=== PATIENT | male | born 1990 | race Caucasian/White ===

== ENCOUNTER 2017-11-30 18:03 | Observation (INO) ==
--- NOTE | 2017-11-30 18:34 | Emergency Department Note ---
Disposition Clinical Impression: Cholecystitis Disposition: Admitted As Inpatient Condition: Undetermined Referrals: NONE,PCP [Primary Care Provider] - Trip Luong DO [Family Provider] - Forms: ED Satisfaction Letter, Work/School Release Time of Disposition: 19:57 Abdominal Pain HPI - General Chief Complaint: ED Abdominal Pain Stated Complaint: ABD Pain/Back Pain Time Seen by Provider: 11/30/17 18:14 Source: patient Mode of arrival: ambulatory Limitations: no limitations Nursing Notes Reviewed: Yes Vital Signs Reviewed: Yes - History of Present Illness HPI Narrative: 27-year-old male no previous medical history arrives to the emergency department with complaint of right upper quadrant pain and radiation into his back. The patient states that he has had intermittent episodes like this over the course the past few weeks. The patient states that at 4 AM this morning she started experiencing worsening symptoms. Patient denies any other complaints other than associated nausea. The patient has no temporal or associated exacerbating factors. The patient is uncomfortable on examination the room. He denies any others previous symptoms similar to this except for the past couple weeks he is having some intermittent episodes. Patient is uncomfortable in the room and unable to sit still during examination. Patient is Oconnor's sign positive. Pain Scale: 8 - Related Data Home Medications Medication Instructions Recorded Confirmed No Known Home Drugs 11/30/17 11/30/17 Allergies Allergy/AdvReac Type Severity Reaction Status Date / Time No Known Allergies Allergy Verified 11/30/17 18:10 All systems ED: reviewed and negative except as stated. Constitutional: Denies: fever, chills, weakness ENT ED: Denies: dysphagia Cardiovascular: Denies: chest pain Respiratory: Denies: dyspnea Gastrointestinal: Reports: abdominal pain, nausea. Denies: vomiting, diarrhea, constipation, hematemesis, melena, hematochezia Genitourinary: Denies: urgency, dysuria Musculoskeletal: Reports: back pain. Denies: neck pain, arthralgia, myalgia Integumentary: Denies: rash Abdominal Pain PMH - Past Medical History Medical history: Reports: no medical history Male Surgical History: Reports: non-contributory - Social History Smoking status: Current every day smoker Alcohol use: Reports: none Drug use: Reports: none Physical Exam - General Limitations: no limitations General appearance: alert, in no apparent distress - Head Head exam: atraumatic, normocephalic, normal inspection - Eye Eye exam: Present: normal appearance, PERRL, EOMI - ENT ENT exam: normal exam, normal oropharynx, mucous membranes moist - Neck Neck exam: Present: normal inspection, full ROM, trachea midline - Chest Chest inspection: Present: normal inspection, symmetric chest wall rise - Respiratory Respiratory exam: Present: normal lung sounds bilaterally - Cardiovascular Cardiovascular exam: Present: regular rate, normal rhythm, normal heart sounds - Abdominal Exam Abdominal exam: Present: soft, tenderness, Oconnor's sign. Absent: distention, guarding, rebound, rigidity, Rovsing's sign, tenderness at McBurney's Point, scar - Extremities Exam Extremities exam: Present: normal inspection, full ROM. Absent: tenderness, pedal edema - Neurological Exam Neurological exam: Present: alert, oriented X3 - Skin Skin exam: Present: warm, dry, intact, normal color Course Vital Signs Temperature 98.4 F 11/30/17 18:10 Pulse Rate 91 11/30/17 18:10 Respiratory Rate 20 11/30/17 18:10 Blood Pressure 158/90 11/30/17 18:10 O2 Sat by Pulse Oximetry 96 11/30/17 18:10 Temperature 98.4 F 11/30/17 18:24 Pulse Rate 89 11/30/17 19:45 Respiratory Rate 20 11/30/17 19:45 Blood Pressure 174/85 11/30/17 19:45 O2 Sat by Pulse Oximetry 100 11/30/17 19:45 Oxygen Delivery Oxygen Delivery Room Air Abdominal Pain - MDM Narrative Medical decision making narrative: Agents lab work concerning for elevated transaminases. The patient's gallbladder ultrasound reveals concerning findings for cholecystitis. The patient does have a common bile duct dilation at 7 mm. The patient has a gallbladder dilation of 14 cm. Patient also has gallbladder wall thickening. The patient is sonographic Oconnor sign. The patient was started on Zosyn with concern for cholecystitis. In general surgery, Dr. Bai was consulted. He requested admission to his service and he will likely take the patient to the OR. Patient is resting comfortably at the time. No further questions or concerns noted by patient. - Lab Data Lab results reviewed: Yes I reviewed the patient's lab results. Result diagrams: 11/30/17 18:34 11/30/17 18:34 Lab Results 08/16/18 08/16/18 Range/Units 18:34 18:34 WBC 16.3 H (4.3-11.1) K/mcL RBC 5.51 H (4.19-5.50) M/mcL Hgb 16.6 (12.9-16.9) g/dL Hct 49.1 (37.5-50.1) % MCV 89.1 (83.0-100.0) fL MCH 30.1 (28.0-33.3) pg MCHC 33.8 (31.6-35.5) g/dL RDW 13.2 (11.5-14.5) % Plt Count 243 (140-400) K/mcL MPV 10.5 (9.4-12.4) fL Immature Gran % 0.5 (0-4) % Seg Neutrophils % 76.4 % Lymphocytes % 14.3 % Monocytes % 7.0 % Eosinophils % 1.5 % Basophils % 0.3 % Neutrophils # 12.5 H (1.6-8.9) K/mcL Lymphocytes # 2.3 (0.6-4.6) K/mcL Monocytes # 1.2 (0.0-1.3) K/mcL Eosinophils # 0.2 (0.0-0.6) K/mcL Basophils # 0.1 (0.0-0.2) K/mcL Sodium 139 (136-145) mEq/L Potassium 3.9 (3.5-5.1) mEq/L Chloride 105 (98-107) mEq/L Carbon Dioxide 25 (23-29) mEq/L BUN 14 (6-20) mg/dL Creatinine 0.71 (0.70-1.30) mg/dL Est GFR ( Amer) > 60 (> 60) Est GFR (Non-Af Amer) > 60 (> 60) BUN/Creatinine Ratio 20 (6-26) Glucose 108 H (70-105) mg/dL Calculated Osmolality 289 (280-300) Calcium 9.7 (8.6-10.3) mg/dL Total Bilirubin 0.7 (0.3-1.0) mg/dL Direct Bilirubin 0.2 (0.0-0.2) mg/dL Indirect Bilirubin 0.5 (0.0-1.2) mg/dL AST 52 H (13-39) Units/L ALT 89 H (7-52) Units/L Alkaline Phosphatase 104 (34-104) Units/L Serum Total Protein 7.8 (6.4-8.9) g/dL Albumin 4.6 (3.5-5.7) g/dL Globulin 3.2 (2.4-3.5) g/dL Albumin/Globulin Ratio 1.4 (1.1-2.2) Lipase 5 L (11-82) Units/L - Radiology Data Radiology results reviewed: Yes I reviewed the patient's radiology results. Abdomen/Pelvis CT 11/30/17 18:33 IMPRESSION: Gallbladder distended with intraluminal radiodense material suggesting sludge and/or stones. There is suspected gallbladder wall thickening correlation for acute inflammation is recommended. Mild fatty infiltration of the liver. Left nephrolithiasis. D/ / Ana Meehan Cha, MD / Ana Meehan Cha, MD Interpreting Provider: Ana Meehan Cha, MD Gallbladder Ultrasound 11/30/17 18:58 IMPRESSION: Distended sludge filled gallbladder with gallbladder wall thickening and positive Oconnor sign. Findings may be consistent with acute cholecystitis in the appropriate clinical setting. A nuclear medicine a patent biliary scan may be helpful for further evaluation if there is clinical concern for acute cholecystitis. Fatty liver. D/ / Long Grove MD / Long [place] MD Interpreting Provider: Long Grove MD
--- NOTE | 2017-11-30 18:46 | Emergency Department Note ---
Disposition Clinical Impression: Cholecystitis Disposition: Admitted As Inpatient Condition: Undetermined Abdominal Pain HPI - General Chief Complaint: ED Abdominal Pain Stated Complaint: ABD Pain/Back Pain Time Seen by Provider: 11/30/17 18:14 - History of Present Illness HPI Narrative: 27yo male presents to [address] [facility] ED complaining of Right upper and lower abdominal pain, and bilateral back pain and burning on urination that started today at 4am , woke him up, and has been constant since then. He states he has had 2 previous episodes, 4 and 6 days ago that went away on their own. Patient has had vomiting with each episode. Patient states that his burning on urination is only during his back/abdominal pain. He states that he has had vomiting today. Patient has used tylenol, pepto, and tums for pain and nausea. Patient states that a year ago he had gotten sepsis due to dental infection that started to shut down his kidneys, but that they recovered since then. Patient denies surgical hx, or hx kidney stones. Patient denies other medhx or medications. Patient denies numbness in perineal/inner thigh area, problems walking,leg weakness, muscle aches/pain, increased frequency urination, fever, chills, constipation, diarrhea, sick contacts, IVDU. Pain Scale: 8 - Related Data Home Medications Medication Instructions Recorded Confirmed No Known Home Drugs 11/30/17 11/30/17 Allergies Allergy/AdvReac Type Severity Reaction Status Date / Time No Known Allergies Allergy Verified 11/30/17 18:10 Constitutional: Denies: fever, chills Cardiovascular: Denies: chest pain, orthopnea, edema Respiratory: Denies: dyspnea Gastrointestinal: Reports: abdominal pain, nausea, vomiting. Denies: diarrhea, constipation Genitourinary: Reports: dysuria. Denies: frequency Musculoskeletal: Reports: back pain. Denies: myalgia Neurological: Denies: numbness, paresthesias, abnormal gait Abdominal Pain PMH - Past Medical History Medical history: Reports: no medical history Male Surgical History: Reports: no surgical history - Social History Smoking status: Current every day smoker Drug use: Reports: none Physical Exam - General General appearance: alert, in no apparent distress - Respiratory Respiratory exam: Present: normal lung sounds bilaterally - Cardiovascular Cardiovascular exam: Present: regular rate, normal rhythm, normal heart sounds - Abdominal Exam Abdominal exam: Present: tenderness. Absent: guarding Abdominal tenderness: Present: RUQ, RLQ, epigastrium - Extremities Exam Extremities exam: Absent: tenderness, pedal edema - Expanded Lower Extremity Exam Lower leg exam: Absent: swelling - Back Exam Back exam: Present: tenderness, CVA tenderness (R), CVA tenderness (L) - Neurological Exam Neurological exam: Present: alert, oriented X3 - Psychiatric Psychiatric exam: Present: normal affect, normal mood Course Vital Signs Temperature 98.4 F 11/30/17 18:10 Pulse Rate 91 11/30/17 18:10 Respiratory Rate 20 11/30/17 18:10 Blood Pressure 158/90 11/30/17 18:10 O2 Sat by Pulse Oximetry 96 11/30/17 18:10 Temperature 98.4 F 11/30/17 18:24 Pulse Rate 82 11/30/17 20:22 Respiratory Rate 20 11/30/17 20:22 Blood Pressure 161/81 11/30/17 20:22 O2 Sat by Pulse Oximetry 100 11/30/17 20:22 Oxygen Delivery Oxygen Delivery Room Air Abdominal Pain - Lab Data Result diagrams: 11/30/17 18:34 11/30/17 18:34 Lab Results 11/30/17 11/30/17 11/30/17 Range/Units 18:34 18:34 19:53 WBC 16.3 H (4.3-11.1) K/mcL RBC 5.51 H (4.19-5.50) M/mcL Hgb 16.6 (12.9-16.9) g/dL Hct 49.1 (37.5-50.1) % MCV 89.1 (83.0-100.0) fL MCH 30.1 (28.0-33.3) pg MCHC 33.8 (31.6-35.5) g/dL RDW 13.2 (11.5-14.5) % Plt Count 243 (140-400) K/mcL MPV 10.5 (9.4-12.4) fL Immature Gran % 0.5 (0-4) % Seg Neutrophils % 76.4 % Lymphocytes % 14.3 % Monocytes % 7.0 % Eosinophils % 1.5 % Basophils % 0.3 % Neutrophils # 12.5 H (1.6-8.9) K/mcL Lymphocytes # 2.3 (0.6-4.6) K/mcL Monocytes # 1.2 (0.0-1.3) K/mcL Eosinophils # 0.2 (0.0-0.6) K/mcL Basophils # 0.1 (0.0-0.2) K/mcL Sodium 139 (136-145) mEq/L Potassium 3.9 (3.5-5.1) mEq/L Chloride 105 (98-107) mEq/L Carbon Dioxide 25 (23-29) mEq/L BUN 14 (6-20) mg/dL Creatinine 0.71 (0.70-1.30) mg/dL Est GFR ( Amer) > 60 (> 60) Est GFR (Non-Af Amer) > 60 (> 60) BUN/Creatinine Ratio 20 (6-26) Glucose 108 H (70-105) mg/dL Calculated Osmolality 289 (280-300) Calcium 9.7 (8.6-10.3) mg/dL Total Bilirubin 0.7 (0.3-1.0) mg/dL Direct Bilirubin 0.2 (0.0-0.2) mg/dL Indirect Bilirubin 0.5 (0.0-1.2) mg/dL AST 52 H (13-39) Units/L ALT 89 H (7-52) Units/L Alkaline Phosphatase 104 (34-104) Units/L Serum Total Protein 7.8 (6.4-8.9) g/dL Albumin 4.6 (3.5-5.7) g/dL Globulin 3.2 (2.4-3.5) g/dL Albumin/Globulin Ratio 1.4 (1.1-2.2) Lipase 5 L (11-82) Units/L Urine Color Yellow (Yellow) Urine Clarity Turbid A (Clear) Urine pH 6.0 (5.0-8.0) pH Units Ur Specific [place] > 1.030 H (1.010-1.025) Urine Protein Trace (Neg-Trace) mg/dL Urine Glucose (UA) Normal (Normal) mg/dL Urine Ketones 40 H (Negative) mg/dL Urine Blood Negative (Negative) Urine Nitrite Negative (Negative) Urine Bilirubin Small H (Negative) Urine Urobilinogen Normal (Normal) mg/dL Ur Leukocyte Esterase Negative (Negative) Urine Microscopic RBC 0-3 (0-3) per hpf Urine Microscopic WBC 3-5 H (0-3) per hpf Ur Squamous Epith Cells Many H (None-Few) per lpf Amorphous Sediment Moderate H (Few) Urine Bacteria None Seen (None-Few) per hpf Hyaline Casts None Seen (None-Few) per lpf Ur Culture Indicated? NO (NO)
[2017-11-30 18:56] LABS: Basophils # 0.1 K/mcL (0.0-0.2); Basophils % 0.3 %; Eosinophils # 0.2 K/mcL (0.0-0.6); Eosinophils % 1.5 %; Hematocrit 49.1 % (37.5-50.1); Hemoglobin 16.6 g/dL (12.9-16.9); Immature Granulocytes % 0.5 % (0-4); Lymphocytes # 2.3 K/mcL (0.6-4.6); Lymphocytes % 14.3 %; Mean Corpuscular HGB Conc 33.8 g/dL (31.6-35.5); Mean Corpuscular Hemoglobin 30.1 pg (28.0-33.3); Mean Corpuscular Volume 89.1 fL (83.0-100.0); Mean Platelet Volume 10.5 fL (9.4-12.4); Monocytes # 1.2 K/mcL (0.0-1.3); Neutrophils # 12.5 K/mcL (1.6-8.9); Platelet Count 243 K/mcL (140-400); Red Blood Count 5.51 M/mcL (4.19-5.50); Red Cell Distribution Width 13.2 % (11.5-14.5); Segmented Neutrophils % 76.4 %
[2017-11-30 19:07] LABS: Alanine Aminotransferase 89 Units/L (7-52); Albumin 4.6 g/dL (3.5-5.7); Albumin/Globulin Ratio 1.4 (1.1-2.2); Alkaline Phosphatase 104 Units/L (34-104); Aspartate Amino Transferase 52 Units/L (13-39); BUN/Creatinine Ratio 20 (6-26); Bilirubin,Direct 0.2 mg/dL (0.0-0.2); Bilirubin,Indirect 0.5 mg/dL (0.0-1.2); Bilirubin,Total 0.7 mg/dL (0.3-1.0); Blood Urea Nitrogen 14 mg/dL (6-20); Calcium 9.7 mg/dL (8.6-10.3); Carbon Dioxide 25 mEq/L (23-29); Chloride 105 mEq/L (98-107); Globulin 3.2 g/dL (2.4-3.5); Glucose 108 mg/dL (70-105); Lipase 5 Units/L (11-82); Osmolality,Calculated 289 (280-300); Potassium 3.9 mEq/L (3.5-5.1); Sodium 139 mEq/L (136-145); Total Protein 7.8 g/dL (6.4-8.9); eGFR For Non-African Americans > 60 (> 60)
[2017-11-30] MEDS ORDERED: *HR* FentaNYL (PF) 100 MCG/2 ML VIAL IVP ONE ×2 (19:31→20:11)
[2017-11-30] MEDS ORDERED: 0.9 % Sodium Chloride 1,000 ML IVC ONE (19:31)
[2017-11-30] MEDS ORDERED: Piperacillin/Tazobactam 3.375 GM in 0.9 % Sodium Chloride Mini Bag 100 ML IVPB ONE (19:41)
--- NOTE | 2017-11-30 19:42 | Emergency Department Note ---
Disposition Clinical Impression: Cholecystitis Disposition: Admitted As Inpatient Condition: Undetermined General Adult HPI - General Chief complaint: ED Abdominal Pain Stated complaint: ABD Pain/Back Pain Time Seen by Provider: 11/30/17 18:14 Source: patient Mode of arrival: ambulatory Limitations: no limitations - History of Present Illness Pain Scale: 8 - Related Data Home Medications Medication Instructions Recorded Confirmed No Known Home Drugs 11/30/17 11/30/17 Allergies Allergy/AdvReac Type Severity Reaction Status Date / Time No Known Allergies Allergy Verified 11/30/17 18:10 Constitutional: Denies: fever, chills, weakness ENT ED: Denies: dysphagia Cardiovascular: Denies: chest pain Respiratory: Denies: dyspnea Gastrointestinal: Reports: abdominal pain, nausea. Denies: vomiting, diarrhea, constipation, hematemesis, melena, hematochezia Genitourinary: Denies: urgency, dysuria Musculoskeletal: Reports: back pain. Denies: neck pain, arthralgia, myalgia Integumentary: Denies: rash Neurological: Denies: numbness, paresthesias, abnormal gait Past Medical History - Past Medical History Medical history: Reports: no medical history - Social History Smoking Status: Current every day smoker Alcohol use: Reports: none Drug use: Reports: none Physical Exam - General Limitations: no limitations General appearance: alert, in no apparent distress Course Vital Signs Temperature 98.4 F 11/30/17 18:10 Pulse Rate 91 11/30/17 18:10 Respiratory Rate 20 11/30/17 18:10 Blood Pressure 158/90 11/30/17 18:10 O2 Sat by Pulse Oximetry 96 11/30/17 18:10 Temperature 98.4 F 11/30/17 18:24 Pulse Rate 82 11/30/17 20:22 Respiratory Rate 20 11/30/17 20:22 Blood Pressure 161/81 11/30/17 20:22 O2 Sat by Pulse Oximetry 100 11/30/17 20:22 Oxygen Delivery Oxygen Delivery Room Air Medical Decision Making - Lab Data Result diagrams: 11/30/17 18:34 11/30/17 18:34 Lab Results 11/30/17 11/30/17 11/30/17 Range/Units 18:34 18:34 19:53 WBC 16.3 H (4.3-11.1) K/mcL RBC 5.51 H (4.19-5.50) M/mcL Hgb 16.6 (12.9-16.9) g/dL Hct 49.1 (37.5-50.1) % MCV 89.1 (83.0-100.0) fL MCH 30.1 (28.0-33.3) pg MCHC 33.8 (31.6-35.5) g/dL RDW 13.2 (11.5-14.5) % Plt Count 243 (140-400) K/mcL MPV 10.5 (9.4-12.4) fL Immature Gran % 0.5 (0-4) % Seg Neutrophils % 76.4 % Lymphocytes % 14.3 % Monocytes % 7.0 % Eosinophils % 1.5 % Basophils % 0.3 % Neutrophils # 12.5 H (1.6-8.9) K/mcL Lymphocytes # 2.3 (0.6-4.6) K/mcL Monocytes # 1.2 (0.0-1.3) K/mcL Eosinophils # 0.2 (0.0-0.6) K/mcL Basophils # 0.1 (0.0-0.2) K/mcL Sodium 139 (136-145) mEq/L Potassium 3.9 (3.5-5.1) mEq/L Chloride 105 (98-107) mEq/L Carbon Dioxide 25 (23-29) mEq/L BUN 14 (6-20) mg/dL Creatinine 0.71 (0.70-1.30) mg/dL Est GFR ( Amer) > 60 (> 60) Est GFR (Non-Af Amer) > 60 (> 60) BUN/Creatinine Ratio 20 (6-26) Glucose 108 H (70-105) mg/dL Calculated Osmolality 289 (280-300) Calcium 9.7 (8.6-10.3) mg/dL Total Bilirubin 0.7 (0.3-1.0) mg/dL Direct Bilirubin 0.2 (0.0-0.2) mg/dL Indirect Bilirubin 0.5 (0.0-1.2) mg/dL AST 52 H (13-39) Units/L ALT 89 H (7-52) Units/L Alkaline Phosphatase 104 (34-104) Units/L Serum Total Protein 7.8 (6.4-8.9) g/dL Albumin 4.6 (3.5-5.7) g/dL Globulin 3.2 (2.4-3.5) g/dL Albumin/Globulin Ratio 1.4 (1.1-2.2) Lipase 5 L (11-82) Units/L Urine Color Yellow (Yellow) Urine Clarity Turbid A (Clear) Urine pH 6.0 (5.0-8.0) pH Units Ur Specific [place] > 1.030 H (1.010-1.025) Urine Protein Trace (Neg-Trace) mg/dL Urine Glucose (UA) Normal (Normal) mg/dL Urine Ketones 40 H (Negative) mg/dL Urine Blood Negative (Negative) Urine Nitrite Negative (Negative) Urine Bilirubin Small H (Negative) Urine Urobilinogen Normal (Normal) mg/dL Ur Leukocyte Esterase Negative (Negative) Urine Microscopic RBC 0-3 (0-3) per hpf Urine Microscopic WBC 3-5 H (0-3) per hpf Ur Squamous Epith Cells Many H (None-Few) per lpf Amorphous Sediment Moderate H (Few) Urine Bacteria None Seen (None-Few) per hpf Hyaline Casts None Seen (None-Few) per lpf Ur Culture Indicated? NO (NO) Attestation Statement - Attestation Attestation: I examined this patient and my medical decision-making was reviewed with the Resident Physician. I agree with the documented findings, disposition and treatment plan as described except to the extent set forth below. Patient presents to the emergency department complaining of right upper quadrant abdominal pain. He has been having pain for a few weeks that worsened significantly Abelardo night. Concern for gallbladder problems as multiple family members have had that. On examination he has right upper quadrant tenderness. Plan. CT and ultrasound are concerning for cholecystitis. He also has a slightly dilated common bile duct. We will discuss with surgery. Antibodies ordered. Patient admitted to surgery. Abdomen/Pelvis CT 11/30/17 18:33 IMPRESSION: Gallbladder distended with intraluminal radiodense material suggesting sludge and/or stones. There is suspected gallbladder wall thickening correlation for acute inflammation is recommended. Mild fatty infiltration of the liver. Left nephrolithiasis. D/ / Ana Meehan Cha, MD / Ana Meehan Cha, MD Interpreting Provider: Ana Meehan Cha, MD Gallbladder Ultrasound 11/30/17 18:58 IMPRESSION: Distended sludge filled gallbladder with gallbladder wall thickening and positive Oconnor sign. Findings may be consistent with acute cholecystitis in the appropriate clinical setting. A nuclear medicine a patent biliary scan may be helpful for further evaluation if there is clinical concern for acute cholecystitis. Fatty liver. D/ / [place] MD / [place] MD Interpreting Provider: [place] MD
[2017-11-30 20:05] LABS: Bilirubin,Urine Small (Negative); Blood,Urine Negative (Negative); Clarity,Urine Turbid (Clear); Color,Urine Yellow (Yellow); Glucose,Urine (UA) Normal (Normal); Ketones,Urine 40 mg/dL (Negative); Leukocyte Esterase,Urine Negative (Negative); Nitrite,Urine Negative (Negative); Protein,Urine Trace mg/dL (Neg-Trace); Specific Gravity,Urine > 1.030 (1.010-1.025); Urobilinogen,Urine Normal (Normal)
[2017-11-30 20:09] LABS: Bacteria,Urine None Seen per hpf (None-Few); Hyaline Casts,Urine None Seen per lpf (None-Few); RBC,Urine 0-3 per hpf (0-3); Squamous Epithelial Cell,Urine Many per lpf (None-Few)
[2017-11-30 20:19] LABS: Amorphous Sediment,Urine Moderate (Few)
[2017-11-30] MEDS ORDERED: CefOXitin 1,000 MG VIAL ONE (20:19)
--- NOTE | 2017-11-30 20:20 | General Surg History&Physical ---
Date of Encounter: 11/30/17 Time of Encounter: 20:00 Assessment and Plan (1) Acute cholecystitis Current Visit: Yes Status: Acute The assessment and plan as outlined above was discussed with the patient and/or family members who expressed understanding and agreement. All questions were answered. Acute cholecystitis associated with cholelithiasis and leukocytosis. He has recalcitrant pain. We will plan to proceed with urgent laparoscopic cholecystectomy, cholangiogram History of Present Illness Chief complaint: Right upper quadrant pain HPI: Mr. Grove is a 27 year old male Who presented to the emergency room tonight with nausea vomiting and right upper quadrant pain. He has been symptomatic with right upper quadrant pain for the last 3 months. He has noted increased fatty food intolerance as well as persistent right upper quadrant pain this has been intermittently associated with nausea but just recently associated with vomiting. He is been in continuous pain since last evening. He denies shakes chills or fever. He denies episodes of jaundice. He sought evaluation in the emergency room. CAT scan of the abdomen demonstrated gallbladder wall distention and gallbladder wall thickening. Follow-up ultrasound demonstrated gallbladder sludge with gallbladder wall thickening as well as distention and likely. Cholecystic fluid. Bile duct measures 7 mm. He complains bitterly of pain radiating through to his back recalcitrant to narcotic pain medicine. He now presents for urgent cholecystectomy for acute cholecystitis and recalcitrant biliary colic Past Med Surg Social Fam HX - Past Medical History Medical history: no medical history - Social History Smoking Status: Current every day smoker Alcohol use: none Drug use: none Medications and Allergies No Known Home Drugs 11/30/17 [History] 3 Allergy/AdvReac Type Severity Reaction Status Date / Time No Known Allergies Allergy Verified 11/30/17 18:10 Review of Systems All systems PM: The remainder of the systems were reviewed and are negative General Surgery Exam Initial Vital Signs Temp Pulse Resp BP Pulse Ox 98.4 F 91 20 158/90 96 11/30/17 18:10 11/30/17 18:10 11/30/17 18:10 11/30/17 18:10 11/30/17 18:10 - General physical appearance well developed, well nourished, no distress - Neck no masses, no bruits, trachea midline, no lymphadectomy, no venous distension - Respiratory normal expansion, normal respiratory effort, clear to percussion, clear to auscultation - Cardiovascular Cardiovascular exam: Present: RRR, no murmurs/rubs/gallops - Abdomen Abdomen general surgery: Present: tender Abdominal Tenderness: Present: RUQ (Positive Oconnor sign) - Neurologic Present: CN 2-12 grossly intact, normal coordination, normal sensation - Psychiatric Psychiatric general surgery: Present: appropriate, oriented to person, oriented to place, oriented to time, speech is normal, memory intact Results - Labs 11/30/17 18:34 11/30/17 18:34 Abnormal lab results WBC 16.3 K/mcL (4.3-11.1) H 11/30/17 18:34 RBC 5.51 M/mcL (4.19-5.50) H 11/30/17 18:34 Neutrophils # 12.5 K/mcL (1.6-8.9) H 11/30/17 18:34 Glucose 108 mg/dL (70-105) H 11/30/17 18:34 AST 52 Units/L (13-39) H 11/30/17 18:34 ALT 89 Units/L (7-52) H 11/30/17 18:34 Lipase 5 Units/L (11-82) L 11/30/17 18:34 Urine Clarity Turbid (Clear) A 11/30/17 19:53 Ur Specific [place] > 1.030 (1.010-1.025) H 11/30/17 19:53 Urine Ketones 40 mg/dL (Negative) H 11/30/17 19:53 Urine Bilirubin Small (Negative) H 11/30/17 19:53 All other labs normal. - Imaging CT scan - abdomen: image reviewed (I personally reviewed the CAT scan images. The patient is gallbladder wall thickening and what appears to be an obstructed gallbladder.) US - abdomen: image reviewed (Ultrasound images are personally reviewed. He has a thickened gallbladder wall and tumefactive layering in the gallbladder consistent with sludge or stones)
[2017-11-30] MEDS ORDERED: Albuterol 2.5 MG/3 ML NEBULIZER ONE (20:37)
--- NOTE | 2017-11-30 20:41 | Anesthesia Evaluation PreOp ---
Date of Encounter: 11/30/17 Time of Encounter: 20:40 - Past History Planned Operation: Lap. Karin Cardiac History: Denies any Significant Hx Pulmonary History: Smoker QUALITY OFFICER History: Denies Any Significant HX Other Medical History: Denies Any Significant HX Anesthesia History: Past Anesthesia (none) Alcohol Use: none Drug use: none Medications and Allergies No Known Home Drugs 11/30/17 [History] 3 Allergy/AdvReac Type Severity Reaction Status Date / Time No Known Allergies Allergy Verified 11/30/17 18:10 - Meds/Allergy Pre-op Review Medications Reviewed: Yes Allergies Reviewed: Yes Beta Blockers on Current Med List: No Anesthesia Results - Labs 11/30/17 18:34 11/30/17 18:34 Anesthesia Exam O2 Sat Height 1.8 m Height 1.8 m Weight 105.506 kg Weight 105.506 kg O2 Sat by Pulse Oximetry 100 O2 Sat by Pulse Oximetry 99 O2 Sat by Pulse Oximetry 100 O2 Sat by Pulse Oximetry 96 O2 Sat by Pulse Oximetry 96 Vital Signs Temp Pulse Resp BP Pulse Ox 98.4 F 91 20 158/90 96 11/30/17 18:10 11/30/17 18:10 11/30/17 18:10 11/30/17 18:10 11/30/17 18:10 NPO (# of Hours): > 8 hrs Pain Scale: 0 Pain Scale Used: Numeric (1 - 10) - HEENT Pupil (Motor): Pupils equal, EOMI Mallampati: I Teeth: Normal Oral Opening: Greater than 3 - QUALITY OFFICER LOC: Oriented QUALITY OFFICER Motor: Normal RUE, Normal LUE, Normal RLE, Normal LLE, Normal Face QUALITY OFFICER Sensory: Normal: RUE, LUE, RLE, LLE, Face - Cardiac Rhythm: Regular Murmur: None JVD: No Carotid Bruit: No - Pulmonary Breath Sounds: bilateral Clear Respiratory Effort: Symmetrical Anesthesia Assess/Plan ASA Score: 2 Modified [place] Scale for Level of Consciousness: Cooperative, oriented, and tranquil Anesthetic Plan: General Autologous Blood: Yes Monitoring Plan: Standard Monitors Recovery Plan: PACU
[2017-11-30] MEDS ORDERED: *HR* Midazolam HCl 2 MG/2 ML VIAL ONE (20:45)
[2017-11-30] MEDS ORDERED: *HR* Propofol 200 MG/20 ML VIAL IVP ONE (20:46)
[2017-11-30] MEDS ORDERED: Isovue-300 50 ML VIAL IVP ONE (20:49)
[2017-11-30] MEDS ORDERED: *HR* FentaNYL (PF) 100 MCG/2 ML VIAL ONE (21:45)
[2017-11-30] MEDS ORDERED: *HR* Labetalol 20 MG/4 ML SYRINGE IVP PRN (22:00)
[2017-11-30] MEDS ORDERED: *HR* HYDROmorphone (PF) 1 MG/ML SYRINGE IVP PRN (22:00)
[2017-11-30] MEDS ORDERED: Albuterol 2.5 MG/3 ML NEBULIZER IH ONE (22:00)
[2017-11-30] MEDS ORDERED: *HR* Midazolam HCl 2 MG/2 ML VIAL IVP PRN (22:00)
[2017-11-30] MEDS ORDERED: Ondansetron 4 MG/2 ML VIAL IVP ONE (22:00)
[2017-11-30] MEDS ORDERED: *HR* Promethazine 25 MG/ML VIAL IVP PRN (22:00)
--- NOTE | 2017-11-30 22:26 | Operative Note ---
Date of procedure: 11/30/17 Pre-op diagnosis: Acute cholecystitis Post-op diagnosis: same Procedure: Scopic cholecystectomy, cholangiogram Anesthesia: TIERNEY Surgeon: Everette Bai Was there an fiscal assistant present: No Estimated blood loss (cc): 20 Specimen: Gallbladder and contents Condition: stable Disposition: PACU Procedure in Detail: Laparoscopic cholecystectomy and intraoperative cholangiogram Operative procedure after informed consent and appropriate patient identification timeout the patient was taken to the major operating suite and placed supine position given adequate general endotracheal anesthesia the abdomen is prepped and draped in sterile fashion utilizing ChloraPrep standard draping techniques timeout was taken patient is identified. I made a vertical midline incision below the umbilicus dissected down to level of fascia there are 2 traction stitches placed in the abdominal cavity was entered visually. A Li trocar was placed in the abdomen and the abdomen was insufflated to 15 mmHg pressure CO2 the gallbladder was visualized. A placement 11 port in the subxiphoid area and 2 5 mm ports in the subcostal area. The gallbladder was completely obstructed. The gallbladder was also very long and elongated. The gallbladder was decompressed with a decompression needle. The gallbladder was grasped and elevated. A variety of blunt and sharp dissection techniques were used to isolate the cystic duct and cystic artery. The cystic artery was controlled with 2 surgical clips proximally and one distally and it was divided I placed a surgical clip on the neck the gallbladder and obtained an intraoperative cholangiogram using 17 mL of Isovue. Intraoperative cholangiogram was normal. The cholangiocatheter was removed and the cystic duct was controlled with 2 surgical clips proximally and was divided the gallbladder was removed from the gallbladder fossae using electrocautery. The gallbladder was removed through the #11 port site using a specimen bag. I replaced the #11 port and irrigated with copious amounts of antibiotic containing solution. There is no evidence of bleeding or bile leak. All trochars were removed. Fascia was closed with 0 Vicryl skin with 2-0 and 4-0 Vicryl he tolerated the procedure well and was transferred to recovery in stable condition
--- NOTE | 2017-11-30 23:22 | Anesthesia Evaluation Post Op ---
Date of Encounter: 11/30/17 Time of Encounter: 23:21 - Vital Signs Vital Signs: Vital Signs/O2 Sat, Most Current Temp Pulse Resp BP Pulse Ox 100.7 F H 105 20 153/97 92 11/30/17 23:13 11/30/17 23:13 11/30/17 23:13 11/30/17 23:13 11/30/17 23:13 - Lungs Lungs: Clear Ascult./Percussion - Airway Airway: Non-obstructed - Cardiovascular Regular Rate - Mental Status Mental Status: Alert & Oriented, Answers Appropriately - Pain Pain Scale: 0 Pain Scale used: Numeric (1 - 10) - Nausea Vomiting Nausea Vomiting: Not Present - Hydration Hydration: Ice chips, Has not voided - Discharge PostOp Status: Transfer Patient to floor
[2017-11-30] MEDS ORDERED: 0.9 % Sodium Chloride 1,000 ML IVC SCH (23:36)
[2017-11-30] MEDS ORDERED: Ondansetron 4 MG/2 ML VIAL IVP PRN (23:36)
[2017-11-30] MEDS ORDERED: *HR* OxyCODONE/APAP 5/325 TABLET PO PRN (23:36)
[2017-11-30] MEDS ORDERED: OXYCODONE Oral CONC 10 MG/0.5 ML ORAL.SYG SL PRN (23:36)
[2017-12-01] MEDS ORDERED: cefOXitin 2,000 MG in Water for inj. (sterile) 20 ML 20 ML IVP SCH
[2017-12-01] MEDS: cefOXitin 2,000 MG in Water for inj. (sterile) 20 ML 20 ML IVP SCH ×2 (04:20→11:21)
[2017-12-01] MEDS ORDERED: *HR* OxyCODONE/APAP 5/325 TABLET PO PRN (07:37)
[2017-12-01] MEDS ORDERED: Ibuprofen 800 MG TABLET PO ONE (07:37)
--- NOTE | 2017-12-01 07:45 | Discharge Summary ---
<Dana Blount - Last Filed: 12/01/17 09:02> Orders not resulted at time of discharge: Pending orders 11/30/17 21:39 Surgical Pathology [PTH] Routine Date of Encounter: 12/01/17 Time of Encounter: 07:46 - Discharge Diagnosis (1) Acute cholecystitis Priority: Primary Status: Acute General Surgery Exam Initial Vital Signs Temp Pulse Resp BP Pulse Ox 98.4 F 91 20 158/90 96 11/30/17 18:10 11/30/17 18:10 11/30/17 18:10 11/30/17 18:10 11/30/17 18:10 Vital Signs Temp Pulse Resp BP Pulse Ox 12/01/17 02:58 98.6 F 89 20 144/65 97 12/01/17 02:01 97 12/01/17 01:57 98.8 F 94 20 150/70 97 12/01/17 00:55 99.0 F 94 20 142/83 98 12/01/17 00:35 97.8 F 79 20 146/94 99 11/30/17 23:52 98.8 F 85 20 143/79 91 11/30/17 23:22 99 18 149/79 92 11/30/17 23:12 100.7 F H 105 20 153/97 92 11/30/17 23:02 102 20 158/93 92 11/30/17 22:52 106 20 156/90 92 11/30/17 22:42 98.8 F 122 20 164/92 94 11/30/17 20:22 82 20 161/81 100 11/30/17 20:10 82 18 158/83 99 11/30/17 19:45 89 20 174/85 100 11/30/17 18:24 98.4 F 91 20 158/90 96 11/30/17 18:10 98.4 F 91 20 158/90 96 Intake and Output 11/30/17 11/30/17 12/01/17 15:59 23:59 07:59 Intake Total 1220 / 1220 Output Total 1775 / 1775 Balance -20 / -20 -555 / -555 Intake: IV Fluids / Mefoxin 2,000 MG In Water for inj. (sterile) 20 ML @ 300 mls/ hr IVP Q8H [facility] Rx#:[id number] Oral 1200 / 1200 Output: Urine 1775 / 1775 Estimated Blood Loss 20 / 20 Other: Stool Characteristics Normal for Patient Weight 105.506 kg 104.9 kg Patient Weight 12/01/17 23:59 Weight 104.9 kg VITAL SIGNS: Reviewed. See [facility] GENERAL: In no apparent distress. HEENT: Normocephalic, atraumatic, pupils are equal and reactive, extraocular motions intact, oropharynx is pink and moist, there is no neck adenopathy or JVD noted. CHEST/RESPIRATORY: The thorax is free from signs of trauma. Lung sounds: clear to auscultation, normal respiratory effort CARDIAC: Regular rate and rhythm. Normal S1 and S2, without murmurs, gallops, or rubs. VASCULAR: No Edema. 2+ peripheral pulses. ABDOMEN: soft, expected postoperative tenderness, hypoactive bowel sounds. INCISION: Surgical incision is clean, dry, and intact. There are no signs of cellulitis or infection noted. MUSCULOSKELETAL: Good range of motion of all major joints. Extremities without clubbing, cyanosis or edema. NEUROLOGIC EXAM: Alert and oriented x 3. Speech normal. Follows commands. PSYCHIATRIC: Mood normal. SKIN: No rash or lesions. - Hospital Course Hospital course: Mr. Grove is a 27 year old male plaints of right upper quadrant pain associated with vomiting for the last 3 months. He completed a CT scan of the abdomen and pelvis which demonstrated gallbladder distention and thickening, Paras cholecystic fluid, and a bile duct measuring 7 mm. He was taken to the operating room where he underwent an uncomplicated laparoscopic cholecystectomy with intraoperative cholangiogram that was unremarkable. He is ambulating and voiding without difficulty, tolerating a diet without nausea or vomiting, vital signs are stable, and he is afebrile. We will begin discharge planning to home with a follow-up in 2 weeks. - Time Spent with Patient Total time spent providing and/or coordinating discharge services: - Discharge Medications Prescriptions: OxyCODONE/APAP 5/325 [Percocet 5/325 MG] 1 each PO Q6HR PRN 7 Days #28 tablet PRN Reason: Pain Docusate Sodium [Colace] 100 mg PO BID #30 capsule Ibuprofen 800 mg PO Q8H #30 tablet Home Medications: Docusate Sodium [Colace] 100 mg PO BID #30 capsule 12/01/17 [Rx] Ibuprofen 800 mg PO Q8H #30 tablet 12/01/17 [Rx] OxyCODONE/APAP 5/325 [Percocet 5/325 MG] 1 each PO Q6HR PRN 7 Days #28 tablet [Rx] Allergies/Adverse Reactions: 3 Allergy/AdvReac Type Severity Reaction Status Date / Time No Known Allergies Allergy Verified 11/30/17 18:10 Date of admission: 11/30/17 20:10 Primary care physician: PCP NONE Discharging clinician: Everette Bai (Jj Blount) Anticipated date of discharge: 12/01/17 - Patient Status Disposition: Home, Self-Care Condition: Undetermined Functional capacity at discharge: independent ambulation Overall status at discharge: patient is progressing back to baseline - Discharge Instructions Instructions: Laparoscopic Cholecystectomy (DC) Follow Up With: Dana Blount CNP [Advanced Practice Nurse] - 12/19/17 2:15 pm Additional Instructions: General Surgical Discharge Instructions 1. No pushing, pulling, or lifting greater than 15 lbs for 2-4 weeks (depending upon procedure). 2. You may shower beginning today, but no tub baths, soaking, or swimming for 2 weeks. 3. You may resume driving when you are off narcotics and are safe to react in a car. 4. Take ibuprofen every 8 hours for discomfort. If this does not relieve discomfort, you may take the as needed Percocet. Take narcotics as directed. Do not take more narcotics then directed and do not share your narcotics with any other person. Do not drink alcohol while on narcotics. 5. Take stool softeners (Colace) or a water based laxative (Miralax) while taking narcotics. You may hold for loose stools. 6. Report any fevers greater than 100.5F, increase abdominal discomfort, drainage that looks like pus, increased redness or pain at the surgical site, or any vomiting. 7. Report any pain in the calves, shortness of breath, or rapid heartbeat. 8. Follow-up in the office as directed. 9. If you were prescribed antibiotics, do not stop them without talking to your provider. - Diet and Activity Activity: increase activity as tolerated Diet: advance to your usual diet <Everette Bai - Last Filed: 12/04/17 09:55> Orders not resulted at time of discharge: Pending orders 11/30/17 21:39 Surgical Pathology [PTH] Routine Date of Encounter: 12/01/17 - Discharge Diagnosis (1) Acute cholecystitis Status: Acute General Surgery Exam Initial Vital Signs Temp Pulse Resp BP Pulse Ox 98.4 F 91 20 158/90 96 11/30/17 18:10 11/30/17 18:10 11/30/17 18:10 11/30/17 18:10 11/30/17 18:10 - Hospital Course Hospital course: Mr. Grove is a 27 year old male - Time Spent with Patient Total time spent providing and/or coordinating discharge services: Date of admission: 11/30/17 20:10 Primary care physician: PCP NONE - Attending Attestation I examined this patient and my medical decision-making was reviewed with the Resident Physician. I agree with the documented findings, disposition and treatment plan as described except to the extent set forth below. The patient is seen and evaluated on morning rounds with the resident and the clinical nurse practitioner. He is done well after cholecystectomy for acute cholecystitis. He should be ready for discharge later today. Everette Bai MD FACS
[2017-12-01 08:06] LABS: Basophils % 0.1 %; Eosinophils % 0.1 %; Hematocrit 42.9 % (37.5-50.1); Immature Granulocytes % 0.3 % (0-4); Lymphocytes # 2.1 K/mcL (0.6-4.6); Lymphocytes % 14.8 %; Mean Corpuscular HGB Conc 34.7 g/dL (31.6-35.5); Mean Corpuscular Hemoglobin 30.8 pg (28.0-33.3); Mean Corpuscular Volume 88.8 fL (83.0-100.0); Monocytes % 6.7 %; Neutrophils # 11.1 K/mcL (1.6-8.9); Platelet Count 229 K/mcL (140-400); Red Blood Count 4.83 M/mcL (4.19-5.50); Red Cell Distribution Width 13.2 % (11.5-14.5)
[2017-12-01 08:09] LABS: Hemoglobin 14.9 g/dL (12.9-16.9)
[2017-12-01 08:25] LABS: Alanine Aminotransferase 67 Units/L (7-52); Albumin 3.9 g/dL (3.5-5.7); Albumin/Globulin Ratio 1.3 (1.1-2.2); Alkaline Phosphatase 89 Units/L (34-104); Aspartate Amino Transferase 49 Units/L (13-39); BUN/Creatinine Ratio 15 (6-26); Bilirubin,Direct 0.2 mg/dL (0.0-0.2); Bilirubin,Indirect 0.6 mg/dL (0.0-1.2); Bilirubin,Total 0.8 mg/dL (0.3-1.0); Blood Urea Nitrogen 9 mg/dL (6-20); Calcium 8.8 mg/dL (8.6-10.3); Carbon Dioxide 25 mEq/L (23-29); Chloride 107 mEq/L (98-107); Globulin 3.1 g/dL (2.4-3.5); Glucose 126 mg/dL (70-105); Osmolality,Calculated 288 (280-300); Potassium 4.1 mEq/L (3.5-5.1); Sodium 139 mEq/L (136-145); eGFR For Non-African Americans > 60 (> 60)
[2017-12-01 10:12] VITALS: BP 143/76
== END 2017-12-01 13:12 | disposition home or self-care (01) ==
LOC: EMEROOARM 18:03 → 3ANU 18:03
PROVIDERS: ADMIT Surgery; ATTEND Surgery